=== PATIENT | female | born 1930 | race Caucasian/White ===

== ENCOUNTER 2016-07-26 13:08 | Inpatient (IN) | payer MEDICARE ==
--- NOTE | 2016-07-26 14:01 | ED ---
General Adult HPI - General Chief complaint: Chest Pain Stated complaint: CHEST PAIN Time Seen by Provider: 07/26/16 13:30 Source: patient, EMS, RN notes reviewed, old records reviewed Mode of arrival: EMS Limitations: no limitations - History of Present Illness Initial comments: This is an 86-year-old female ER for evaluation. This patient presents for evaluation of chest pain, severe anterior chest pain. Patient also states she is very short of breath. Patient has no history of similar chest pain. No injuries no trauma no cough no congestion, no recent travel history. Patient denies any significant medical history. Takes no medications. Patient states pain was sudden onset just prior to arrival. No nausea vomiting no diarrhea no abdominal pain. - Related Data Home Medications Medication Instructions Recorded Confirmed Aspirin 81 mg PO DAILY 07/26/16 07/26/16 Calcium Carbonate [Calcium] 600 mg PO DAILY 07/26/16 07/26/16 Cyanocobalamin (Vitamin B-12) 1,000 mcg PO DAILY 07/26/16 07/26/16 [Vitamin B-12] Imipramine HCl [Tofranil] 50 mg PO DIRECTED 07/26/16 07/26/16 Meloxicam [Mobic] 15 mg PO DAILY 07/26/16 07/26/16 Multivitamins, Thera [Multivitamin 1 tab PO DAILY 07/26/16 07/26/16 (formulary)] Polyethylene Glycol 3350 [Miralax] 17 gm PO DAILY PRN 07/26/16 07/26/16 Allergies Allergy/AdvReac Type Severity Reaction Status Date / Time Sulfa (Sulfonamide Allergy Unknown Verified 07/26/16 13:19 Antibiotics) Childhood Review of Systems ROS Statement: Those systems with pertinent positive or pertinent negative responses have been documented in the HPI. ROS Other: All systems not noted in ROS Statement are negative. Past Medical History Past Medical History: Osteoarthritis (OA) History of Any Multi-Drug Resistant Organisms: None Reported Past Surgical History: Breast Surgery, Hysterectomy Past Psychological History: No Psychological Hx Reported Smoking Status: Never smoker Past Alcohol Use History: None Reported Past Drug Use History: None Reported General Exam Limitations: no limitations General appearance: alert, anxious, in distress Head exam: Present: atraumatic, normocephalic, normal inspection Eye exam: Present: normal appearance, PERRL, EOMI. Absent: scleral icterus, conjunctival injection, periorbital swelling ENT exam: Present: normal exam, mucous membranes moist Neck exam: Present: normal inspection. Absent: tenderness, meningismus, lymphadenopathy Respiratory exam: Present: normal lung sounds bilaterally. Absent: respiratory distress, wheezes, rales, rhonchi, stridor Cardiovascular Exam: Present: regular rate, normal rhythm, normal heart sounds. Absent: systolic murmur, diastolic murmur, rubs, gallop, clicks GI/Abdominal exam: Present: soft, normal bowel sounds. Absent: distended, tenderness, guarding, rebound, rigid Extremities exam: Present: normal inspection, full ROM, normal capillary refill. Absent: tenderness, pedal edema, joint swelling, calf tenderness Back exam: Present: normal inspection Neurological exam: Present: alert, oriented X3, CN II-XII intact Psychiatric exam: Present: normal affect, normal mood Skin exam: Present: warm, dry, intact, normal color. Absent: rash Course Vital Signs 07/26/16 07/26/16 07/26/16 13:13 14:18 14:43 Temperature 98.5 F 98.2 F Pulse Rate 73 78 60 Respiratory 22 16 16 Rate Blood Pressure 213/105 221/104 173/86 O2 Sat by Pulse 96 98 95 Oximetry 07/26/16 07/26/16 07/26/16 15:02 15:23 15:57 Temperature Pulse Rate 60 59 L 56 L Respiratory 16 16 16 Rate Blood Pressure 210/92 179/84 190/88 O2 Sat by Pulse 98 97 96 Oximetry - Reevaluation(s) Reevaluation #1: 07/26/16 16:16 Patient's pain is completely resolved with pain control, she still remaining hypertensive EKG Findings - EKG Comments: EKG Findings:: EKG shows normal sinus rhythm rate of 64, WV 190, QRS 78, QTC 404 Medical Decision Making - Medical Decision Making 86 female ER for evaluation of chest pain left chest pain rating left shoulder. Patient is also with elevated blood pressure. Patient be admitted for elevation of blood pressure treatment of high blood pressure treading of cardiac troponins anticoagulation and further evaluation and treatment - Lab Data Result diagrams: 07/26/16 13:15 07/26/16 13:15 Lab Results 07/26/16 07/26/16 07/26/16 Range/Units 13:15 13:15 13:15 WBC 6.0 (3.8-10.6) k/uL RBC 4.07 (3.80-5.40) m/uL Hgb 12.8 (11.4-16.0) gm/dL Hct 38.9 (34.0-46.0) % MCV 95.5 (80.0-100.0) fL MCH 31.4 (25.0-35.0) pg MCHC 32.9 (31.0-37.0) g/dL RDW 13.7 (11.5-15.5) % Plt Count 165 (150-450) k/uL Neutrophils % 76 % Lymphocytes % 15 % Monocytes % 6 % Eosinophils % 0 % Basophils % 0 % Neutrophils # 4.6 (1.3-7.7) k/uL Lymphocytes # 0.9 L (1.0-4.8) k/uL Monocytes # 0.4 (0-1.0) k/uL Eosinophils # 0.0 (0-0.7) k/uL Basophils # 0.0 (0-0.2) k/uL PT (9.0-12.0) sec INR (<1.1) APTT (22.0-30.0) sec Sodium 142 (137-145) mmol/L Potassium 4.2 (3.5-5.1) mmol/L Chloride 103 (98-107) mmol/L Carbon Dioxide 27 (22-30) mmol/L Anion Gap 12 mmol/L BUN 29 H (7-17) mg/dL Creatinine 1.17 H (0.52-1.04) mg/dL Est GFR (MDRD) Af Amer 53 (>60 ml/min/1.73 sqM) Est GFR (MDRD) Non-Af 44 (>60 ml/min/1.73 sqM) Glucose 104 H (74-99) mg/dL Calcium 9.8 (8.4-10.2) mg/dL Magnesium 2.0 (1.6-2.3) mg/dL Total Bilirubin 0.8 (0.2-1.3) mg/dL AST 27 (14-36) U/L ALT 25 (9-52) U/L Alkaline Phosphatase 91 (38-126) U/L Total Creatine Kinase 61 (30-135) U/L CK-MB (CK-2) 1.5 (0.0-2.4) ng/mL CK-MB (CK-2) Rel Index 2.5 Troponin I <0.012 (0.000-0.034) ng/mL Total Protein 6.9 (6.3-8.2) g/dL Albumin 4.1 (3.5-5.0) g/dL Lipase 163 (23-300) U/L 07/26/16 Range/Units 13:15 WBC (3.8-10.6) k/uL RBC (3.80-5.40) m/uL Hgb (11.4-16.0) gm/dL Hct (34.0-46.0) % MCV (80.0-100.0) fL MCH (25.0-35.0) pg MCHC (31.0-37.0) g/dL RDW (11.5-15.5) % Plt Count (150-450) k/uL Neutrophils % % Lymphocytes % % Monocytes % % Eosinophils % % Basophils % % Neutrophils # (1.3-7.7) k/uL Lymphocytes # (1.0-4.8) k/uL Monocytes # (0-1.0) k/uL Eosinophils # (0-0.7) k/uL Basophils # (0-0.2) k/uL PT 11.5 (9.0-12.0) sec INR 1.1 (<1.1) APTT 23.0 (22.0-30.0) sec Sodium (137-145) mmol/L Potassium (3.5-5.1) mmol/L Chloride (98-107) mmol/L Carbon Dioxide (22-30) mmol/L Anion Gap mmol/L BUN (7-17) mg/dL Creatinine (0.52-1.04) mg/dL Est GFR (MDRD) Af Amer (>60 ml/min/1.73 sqM) Est GFR (MDRD) Non-Af (>60 ml/min/1.73 sqM) Glucose (74-99) mg/dL Calcium (8.4-10.2) mg/dL Magnesium (1.6-2.3) mg/dL Total Bilirubin (0.2-1.3) mg/dL AST (14-36) U/L ALT (9-52) U/L Alkaline Phosphatase (38-126) U/L Total Creatine Kinase (30-135) U/L CK-MB (CK-2) (0.0-2.4) ng/mL CK-MB (CK-2) Rel Index Troponin I (0.000-0.034) ng/mL Total Protein (6.3-8.2) g/dL Albumin (3.5-5.0) g/dL Lipase (23-300) U/L - Radiology Data Radiology results: report reviewed (Chest x-ray and CTA of aorta show no aortic dissection, no aneurysm, abdominal aneurysm, normal chest x-ray), image reviewed Critical Care Time Critical Care Time: Yes Total Critical Care Time: 31 Disposition Clinical Impression: Chest pain, Hypertension Disposition: ADMITTED IP TO THIS HOSP Condition: Fair Instructions: Chest Pain (ED) Referrals: Catarino Tao MD [Primary Care Provider] - 1-2 days
[2016-07-26 14:03] LABS: Basophils % (A) 0 %; CH 31.4; Eosinophils % (A) 0 %; HCT 38.9 % (34.0-46.0); HDW 2.49; HGB 12.8 gm/dL (11.4-16.0); Luc # (Auto) 0.16; Luc % (Auto) 3; Lymphocytes # (A) 0.9 k/uL (1.0-4.8); Lymphocytes % (A) 15 %; MCH 31.4 pg (25.0-35.0); MCHC 32.9 g/dL (31.0-37.0); MCV 95.5 fL (80.0-100.0); Mean Platelet Volume 7.9; Monocytes # (A) 0.4 k/uL (0-1.0); Monocytes % (A) 6 %; Neutrophils # (A) 4.6 k/uL (1.3-7.7); Neutrophils % (A) 76 %; RBC 4.07 m/uL (3.80-5.40); RDW 13.7 % (11.5-15.5)
[2016-07-26 14:11] LABS: Calcium 9.8 mg/dL (8.4-10.2); INR 1.1 (<1.1); Potassium 4.2 mmol/L (3.5-5.1); Prothrombin Time 11.5 sec (9.0-12.0); Total Bilirubin 0.8 mg/dL (0.2-1.3); Total Protein 6.9 g/dL (6.3-8.2)
[2016-07-26] MEDS ORDERED: LABETALOL SYRINGE 5 MG/ML IVP STA ×2 (14:24→15:13)
[2016-07-26] MEDS ORDERED: RX INFO: IV CONTRAST WAS GIVEN 1 EACH MISC MISCELLANE PRN (14:24)
--- NOTE | 2016-07-26 14:24 | XR ---
EXAMINATION TYPE: XR chest 2V DATE OF EXAM: 07/26/2016 2:12 PM COMPARISON: 07/19/2012 TECHNIQUE: PA and lateral views submitted. HISTORY: Chest pain FINDINGS: The lungs are clear and there is no pneumothorax, pleural effusion, or focal pneumonia. Degenerativ e change of the spine. Compression deformity in the midthoracic spine is of indeterminate age. There appears to be a aortic aneurysm measuring 4.9 cm. Correlate for pulmonary arterial hypertension. As d iscussed with the ER physician. IMPRESSION: 1. Thoracic aortic aneurysm. Correlate with CT scan as clinically warranted.
[2016-07-26] MEDS ORDERED: MORPHINE SULFATE 4 MG/ML SYRINGE IVP STA (14:31)
[2016-07-26 14:33] LABS: Creatine Kinase 61 U/L (30-135)
[2016-07-26 14:46] LABS: Creatine Kinase MB 1.5 ng/mL (0.0-2.4); Troponin I <0.012 ng/mL (0.000-0.034)
--- NOTE | 2016-07-26 15:25 | CT ---
CTA thoracic and abdominal aorta HISTORY: Hypertension, chest and left shoulder pain Helical acquisition obtained pre- and postadministration of intravenous contrast through the aorta, t hree-dimensional post processing performed on an alternate workstation No comparisons Thoracic aorta shows a normal caliber. There is some thickening of the aortic wall from the transvers e aorta inferiorly, some luminal plaque is also present, no definite dissection. Celiac axis, superio r mesenteric artery and renal arteries are patent. Common iliac arteries aren't dilated measuring charley roximately 21 mm on the left and 21 mm on the right. Internal and external iliac arteries are patent. Internal iliac artery on the left somewhat aneurysmal measuring 13 mm. Common femoral arteries are p atent, proximal superficial and deep femoral arteries are patent. Some wall thickening also present a long the iliac vasculature. Abdominal aorta shows a normal caliber. Inferior mesenteric artery is pat ent. The aorta is tortuous. Pulmonary artery measures approximately 3.1 cm. There are coronary artery calcifications. Prominent l jarad volumes may be indicative of COPD. Nodular density on axial image 37 in the right upper lobe jared ures approximately 5 mm and is indeterminate. Some dependent atelectatic changes are present. No endo bronchial lesion, pleural or pericardial effusion. The heart is enlarged. There are coronary artery c alcifications. There is a hiatal hernia. Degenerative disc changes are present in the spine, there is spinal curvature. Marked facet arthropathy present in the lower lumbar spine. Cortical cysts associa alejandro with the left kidney. Extensive diverticular change in the sigmoid colon. IMPRESSION: Abnormal thickening of the aortic iliac carney, consider aortitis. No evident dissection. 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 Additional findings above.
[2016-07-26] MEDS ORDERED: ASPIRIN 81 MG CHEW PO STA (16:11)
[2016-07-26] MEDS ORDERED: HEPARIN SODIUM,PORCINE 5,000 UNIT/ML 1 ML VIAL IV ONE (16:11)
[2016-07-26] MEDS ORDERED: MORPHINE SULFATE 4 MG/ML SYRINGE IV PRN (16:11)
[2016-07-26] MEDS ORDERED: HEPARIN SODIUM,PORCINE 5,000 UNIT/ML 1 ML VIAL IV PRN (16:11)
[2016-07-26] MEDS: HEPARIN SODIUM,PORCINE/D5W PMX 25,000 UNIT in DEXTROSE/WATER 1 500ML.BAG IV SCH (16:29)
--- NOTE | 2016-07-26 17:05 | US ---
EXAMINATION TYPE: US venous doppler duplex LE RT DATE OF EXAM: 07/26/2016 4:52 PM COMPARISON: NONE CLINICAL HISTORY: Pain. SIDE PERFORMED: right VESSELS IMAGED: External Iliac Vein (EIV) Common Femoral Vein Deep Femoral Vein Greater Saphenous Vein * Femoral Vein Popliteal Vein Small Saphenous Vein * Proximal Calf Veins (* superficial vessels) Within the popliteal fossa there is a hypoechoic focus measuring 1.8 x 3.7 x 1.2 cm with low-level in ternal echoes. Right Leg: Negative for DVT IMPRESSION: No evident deep venous thrombosis at or above the right knee. Semimembranosus gastrocnem ius cyst is likely present within the popliteal fossa. Alternate imaging may be confirmatory.
[2016-07-26] MEDS ORDERED: HYDROmorphone 1 MG/ML 1 ML SYRINGE IVP PRN (18:16)
[2016-07-26] MEDS ORDERED: POLYETHYLENE GLYCOL 3350 17 GM POWD.PACK PO PRN (18:16)
[2016-07-26] MEDS ORDERED: IMIPRAMINE HCL 50 MG PO SCH (18:30)
[2016-07-26] MEDS: hydrALAZINE HCL 20 MG/ML 1 ML VIAL IVP PRN (18:42)
[2016-07-26] MEDS ORDERED: HYDROcodone/APAP 5-325MG 1 EACH TAB PO PRN (19:29)
[2016-07-26] MEDS: METOPROLOL TARTRATE 50 MG TAB PO SCH (20:47)
[2016-07-26] MEDS: MELATONIN 3 MG TABLET PO SCH (20:47)
[2016-07-26 21:06] LABS: Partial Thromboplastin Time 52.9 sec (22.0-30.0)
[2016-07-26 21:09] LABS: Rheumatoid Factor, Qnt <9 IU/mL (<12)
[2016-07-26 21:13] LABS: Troponin I 0.014 ng/mL (0.000-0.034)
[2016-07-26 21:20] LABS: C Reactive Protein 12.7 mg/L (<10.0)
[2016-07-27 00:31] LABS: Appearance,Urine Clear (Clear); Bilirubin,Urine Negative (Negative); Glucose,Urine (UA) Negative (Negative); Ketones,Urine Negative (Negative); Leukocyte Esterase,Urine Negative (Negative); Nitrite,Urine Negative (Negative); PH, Urine 6.5 (5.0-8.0); Protein,Urine Trace (Negative); Specific Gravity,Urine 1.035 (1.001-1.035); UA Billing (MACRO vs. MICRO) CHEM; Urobilinogen,Urine <2.0 mg/dL (<2.0)
[2016-07-27 02:09] LABS: Basophils % (A) 0 %; CH 31.3; CHCM 32.2; Eosinophils % (A) 0 %; HCT 37.6 % (34.0-46.0); HDW 2.38; HGB 11.8 gm/dL (11.4-16.0); Luc # (Auto) 0.12; Luc % (Auto) 2; Lymphocytes # (A) 0.6 k/uL (1.0-4.8); Lymphocytes % (A) 10 %; MCH 30.9 pg (25.0-35.0); MCHC 31.5 g/dL (31.0-37.0); MCV 97.9 fL (80.0-100.0); Monocytes # (A) 0.4 k/uL (0-1.0); Monocytes % (A) 6 %; Neutrophils % (A) 82 %; RBC 3.84 m/uL (3.80-5.40); RDW 13.8 % (11.5-15.5); WBC (Perox) 6.39
[2016-07-27 02:43] LABS: Creatine Kinase MB 0.9 ng/mL (0.0-2.4); Troponin I 0.014 ng/mL (0.000-0.034)
[2016-07-27 02:53] LABS: Potassium 4.2 mmol/L (3.5-5.1)
[2016-07-27] MEDS: hydrALAZINE HCL 20 MG/ML 1 ML VIAL IVP PRN (04:15)
[2016-07-27] MEDS: NITROGLYCERIN SL TABS 0.4 MG TAB SUBLINGUAL PRN ×2 (05:08→05:15)
[2016-07-27] MEDS: PANTOPRAZOLE 40 MG TABLET PO SCH (06:22)
--- NOTE | 2016-07-27 08:58 | HP ---
DATE OF ADMISSION: 07/26/2016 CHIEF COMPLAINT: Chest pain. HISTORY OF PRESENT ILLNESS: This 86-year-old woman with a past medical history of multiple medical problems including history of degenerative joint disease, history of varicose veins, history of breast surgery, history of degenerative joint disease being followed by Dr. Catarino Tao in the outpatient setting was having chest pains today. Initially the pain had started between both shoulders, subsequently the pain extended to the anterior part of chest and posterior part of the chest also. Pain also distended down to below the breast area. There is more of a sharp pain. Patient is also extremely short of breath apparently. Patient came to [facility] and was admitted for further evaluation and treatment. The evaluation showed PTT 22.3, creatinine is 1.17. The EKG on admission showed nonspecific ST-T changes and the venous Doppler showed no evidence of DVT. The thoracic aortic studies also done showed abnormal thickening of the aortoiliac acrney. The possibility of aortitis also considered. No evidence of dissection. dilation of the common iliac arteries also noted. Extensive diverticular changes and chronic obstructive pulmonary disease were also noted on the CT scan. Please refer to the CT scan reports for further evaluation for the full report. There is no history of any fever, rigors. No history of headache, loss of consciousness or seizures. PAST MEDICAL HISTORY: History of DJD, history of varicose veins, history of appendectomy. Medications prior to admission include: 1. Imipramine Tofranil 50 mg p.r.n. 2. MiraLAX 3.35, 17 grams daily. 3. Multivitamin 1 p.o. daily. 4. Mobic 15 mg p.o. daily. 5. Vitamin B12 1000 mcg p.o. daily. 6. Calcium 600 mg p.o. daily. 7. Aspirin 81 mg. ALLERGIES: SULFA. FAMILY HISTORY: No history of heart disease or strokes in the family. SOCIAL HISTORY: No history of smoking, no history of alcohol intake. REVIEW OF SYSTEMS: ENT: No diminished hearing, no diminished vision. CARDIOVASCULAR: As mentioned earlier. RESPIRATORY: As mentioned earlier. GI: No nausea. : No dysuria. NERVOUS SYSTEM: No numbness or weakness. ALLERGY/IMMUNOLOGY: No asthma or hayfever. MUSCULOSKELETAL: As mentioned earlier. HEMATOLOGY: No history of anemia. ENDOCRINE: No history of diabetes or hypothyroidism. CONSTITUTIONAL: As mentioned earlier. DERMATOLOGY: Negative. RHEUMATOLOGY: Negative. PSYCHIATRY: As mentioned earlier. PHYSICAL EXAMINATION: Alert and oriented x3. Pulse 67, blood pressure 280/95, respirations 18, temperature 97.8, pulse ox 90% on 2-L. HEENT: Conjunctivae normal. Oral mucosa moist. NECK: No jugular venous distention. No thyroid enlargement or carotid bruit. No lymph node enlargement. CARDIOVASCULAR: S1 and S2, muffled. RESPIRATORY: Breath sounds diminished at the bases. A few scattered rhonchi and crackles. ABDOMEN: Soft, nontender. No mass palpable. LEGS: No edema, no swelling. NERVOUS SYSTEM: Higher function as mentioned. Moves all four limbs. No focal motor deficits. LYMPHATIC: No lymphadenopathy in the neck, axillae or groin. SKIN: No ulcer, rash or bleeding. Pulses are felt normally. No delay was appreciated. Lab investigation at this time shows CBC within normal limits and creatinine 1.17. Glucose 104. ASSESSMENT: 1. Chest pain, possible unstable angina. 2. Rule out aortitis. 3. History of degenerative joint disease. 4. Shortness of breath for evaluation, possible chronic obstructive pulmonary disease. 5. History of hysterectomy and breast surgery. 6. Urinary incontinence. 7. History of shingles. 8. Increased creatinine with chronic kidney disease stage III. 9. Increased random blood sugar. RECOMMENDATIONS AND DISCUSSION: In this 86-year-old woman who presented with multiple complex medical issues, we will monitor the patient closely. Continue the current medications, continue symptomatic treatment. Cardiology consultation. Rule out myocardial infarction. I would also recommend a CRP and ESR also as well as CARINA and rheumatoid factor as well. The prognosis is guarded because of multiple complex medical issues. Lipid panel will also be noted. Guarded prognosis because of multiple complex medical issues. Further recommendations to follow. Prognosis is guarded because of multiple complex medical issues. I discussed with the patient and family who understands. We will also order a D-dimer. If the d-dimer is positive, recommend a VQ scan. Discussed with the daughter and further recommendations to follow. Copy of dictation forwarded to Dr. Catarino Tao, who is the primary physician. HIRO
[2016-07-27] MEDS ORDERED: MELOXICAM 7.5 MG TAB PO SCH (09:00)
[2016-07-27] MEDS ORDERED: ASPIRIN 325 MG TAB PO SCH (09:00)
[2016-07-27] MEDS: METOPROLOL TARTRATE 50 MG TAB PO SCH ×2 (09:25→20:57)
--- NOTE | 2016-07-27 10:02 | P.CRDCN ---
History of Present Illness Consult date: 07/27/16 Chief complaint: Chest discomfort History of present illness: This is a pleasant 86-year-old female patient with a past medical history significant for hypertension and dyslipidemia was brought to the emergency room by ambulance because of chest discomfort. The patient was in her usual state of health until yesterday when she was at home and started experiencing discomfort between the shoulders. The discomfort was sharp kind of discomfort, severity not to call ambulance to bring the patient to the emergency room. No associated symptoms of shortness of breath, dizziness or lightheadedness, nausea or vomiting, or sweating. 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 Last night the patient developed another episode of chest discomfort, but this time it was at the mid of the chest. The EKG showed sinus rhythm with diffuse nonspecific changes. The cardiac enzymes were checked and came in to be unremarkable. The patient is not aware of any prior history of coronary artery disease and never seen any foot cutter in the past. I will obtain an echocardiogram with Doppler. Agree to keep the patient on the current medications including the aspirin and beta aranza. The patient's symptoms could be secondary to severe underlying coronary artery disease, but I discussed with the family the age and functional capacity and at this point I would consider a conservative medical approach unless the patient developed chest discomfort again. Past Medical History Past Medical History: Osteoarthritis (OA) Additional Past Medical History / Comment(s): varicose veins, rt lower leg dry rash, leg swelling,occ constipation, "leakage of urine, uti, shingles 10 years ago, History of Any Multi-Drug Resistant Organisms: None Reported Past Surgical History: Appendectomy, Breast Surgery, Hysterectomy, Joint Replacement Additional Past Surgical History / Comment(s): colonoscopy, total lt knee arthroplasty 2013,x2 rt breast lumpectomies, d&c d/t miscarraiges Past Anesthesia/Blood Transfusion Reactions: Previous Problems w/ Anesthesia Additional Past Anesthesia/Blood Transfusion Reaction / Comment(s): dif waking after surgury Past Psychological History: No Psychological Hx Reported Additional Psychological History / Comment(s): pt is independant,lives alone in own home that has 5 steps to get into home ,it's a 1 level home w/basement(x13 steps) but laundry is main level. no pets. no outside services, has a shower chair. pt worked as a teachers aid Smoking Status: Never smoker Past Alcohol Use History: None Reported Past Drug Use History: None Reported - Past Family History Mother Family Medical History: No Reported History Additional Family Medical History / Comment(s): at age 95 from" old age" Father Family Medical History: Diabetes Mellitus Brother(s) Additional Family Medical History / Comment(s): brother- from [place] in his 50' s, another brother from cancer and one from dementia Medications and Allergies Home Medications Medication Instructions Recorded Confirmed Type Aspirin 81 mg PO DAILY 07/26/16 07/26/16 History Calcium Carbonate [Calcium] 600 mg PO DAILY 07/26/16 07/26/16 History Cyanocobalamin (Vitamin B-12) 1,000 mcg PO DAILY 07/26/16 07/26/16 History [Vitamin B-12] Imipramine HCl [Tofranil] 50 mg PO DIRECTED 07/26/16 07/26/16 History Meloxicam [Mobic] 15 mg PO DAILY 07/26/16 07/26/16 History Multivitamins, Thera [Multivitamin 1 tab PO DAILY 07/26/16 07/26/16 History (formulary)] Polyethylene Glycol 3350 [Miralax] 17 gm PO DAILY PRN 07/26/16 07/26/16 History Allergies Allergy/AdvReac Type Severity Reaction Status Date / Time Sulfa (Sulfonamide Allergy Unknown Verified 07/26/16 13:19 Antibiotics) Childhood Physical Exam Vitals: Vital Signs Temp Pulse Pulse Resp BP BP Pulse Ox 07/27/16 08:00 96.3 F L 67 16 164/75 96 07/27/16 04:00 98.4 F 65 16 165/73 96 07/27/16 00:00 98.2 F 98 16 132/63 98 07/26/16 20:00 98.8 F 65 16 168/79 95 07/26/16 17:51 97.9 F 57 L 57 L 18 218/95 96 Intake and Output 07/26/16 07/27/16 07/27/16 22:59 06:59 14:59 Intake Total 220 144 501 Output Total 50 Balance 220 94 501 Intake: IV 144 501 Heparin Sodium,Porcine/ 144 258 D5w Pmx 25,000 unit In Dextrose/Water 1 500ml. bag @ 12 UNITS/KG/HR 18. 25 mls/hr IV .Q24H VITO Rx #:[id number] Invasive Line 2 10 Normal Saline 233 Oral 220 Output: Urine 50 Other: Voiding Method Diaper Incontinent # Voids 1 Weight 75.8 kg - Constitutional General appearance: no acute distress - Respiratory Respiratory: bilateral: rhonchi - Cardiovascular Rhythm: regular Heart sounds: normal: S1, S2 Abnormal Heart Sounds: systolic murmur Results 07/27/16 02:03 07/27/16 02:03 Cardiac Enzymes 07/26/16 07/27/16 Range/Units 20:35 02:03 CK-MB (CK-2) 1.0 0.9 (0.0-2.4) ng/mL Troponin I 0.014 0.014 (0.000-0.034) ng/mL Coagulation 07/26/16 07/27/16 Range/Units 20:35 02:03 APTT 52.9 H 52.9 H (22.0-30.0) sec Lipids 07/27/16 Range/Units 02:03 Triglycerides 96 (<150) mg/dL Cholesterol 148 (<200) mg/dL HDL Cholesterol 57 (40-60) mg/dL CBC 07/27/16 Range/Units 02:03 WBC 6.0 (3.8-10.6) k/uL RBC 3.84 (3.80-5.40) m/uL Hgb 11.8 (11.4-16.0) gm/dL Hct 37.6 (34.0-46.0) % Plt Count 114 L (150-450) k/uL Comprehensive Metabolic Panel 07/27/16 Range/Units 02:03 Sodium 139 (137-145) mmol/L Potassium 4.2 (3.5-5.1) mmol/L Chloride 103 (98-107) mmol/L Carbon Dioxide 26 (22-30) mmol/L BUN 29 H (7-17) mg/dL Creatinine 1.10 H (0.52-1.04) mg/dL Glucose 131 H (74-99) mg/dL Calcium 9.0 (8.4-10.2) mg/dL Current Medications Generic Name Dose Route Start Last Admin Trade Name Freq PRN Reason Stop Dose Admin Hydrocodone Bitart/Acetaminophen 1 each 07/26/16 19:29 Isom 5-325 PO Q6HR PRN Pain Aspirin 325 mg 07/27/16 09:00 07/27/16 09:25 Aspirin PO 325 mg DAILY VITO Administration Calcium Carbonate/Glycine 500 mg 07/27/16 12:00 Tums PO DAILY@1200 [facility] Clonidine 0.1 mg 07/26/16 18:16 Catapres PO Q4HR PRN Hypertension Cyanocobalamin 1,000 mcg 07/27/16 12:00 Vitamin B-12 PO DAILY@1200 [facility] Heparin Sodium (Porcine) 0 unit 07/26/16 16:11 Heparin IV Q6HR PRN Low PTT Protocol Hydralazine HCl 10 mg 07/26/16 18:16 07/27/16 04:15 Apresoline IVP 10 mg Q4HR PRN Administration Blood Pressure - High Hydromorphone HCl 0.5 mg 07/26/16 18:16 Dilaudid IVP Q6HR PRN Severe Pain Heparin Sodium/Dextrose 25,000 500 mls @ 18.25 mls/hr 07/26/16 16:15 16:29 unit/ IV Solution IV 12 units/kg/hr .Q24H VITO 18.25 mls/hr Protocol Administration 12 UNITS/KG/HR Melatonin 3 mg 07/26/16 21:00 07/26/16 20:47 Melatonin PO 3 mg HS VITO Administration Meloxicam 15 mg 07/27/16 09:00 07/27/16 09:24 Mobic PO 15 mg DAILY VITO Administration Metoprolol Tartrate 50 mg 07/26/16 21:00 07/27/16 09:25 Lopressor PO 50 mg BID [facility] Administration Miscellaneous Information 1 each 07/26/16 14:24 Rx Info: Iv Contrast Was Given MISCELLANE 07/28/16 14:24 DAILY PRN Per Protocol Morphine Sulfate 4 mg 07/26/16 16:11 Morphine Sulfate (Inj) IV Q4HR PRN Chest Pain Multivitamins 1 each 07/27/16 12:00 Theragran PO DAILY@1200 [facility] Nitroglycerin 0.4 mg 07/26/16 16:11 07/27/16 05:15 Nitrostat SUBLINGUAL 0.4 mg Q5M PRN Administration Chest Pain Non-Formulary Medication 50 mg 03/17/17 18:30 Imipramine Hcl [Tofranil] PO DIRECTED VITO Pantoprazole Sodium 40 mg 07/27/16 07:30 07/27/16 06:22 Protonix PO 40 mg [id number] VITO Administration Polyethylene Glycol 17 gm 07/26/16 18:16 Miralax PO DAILY PRN Constipation Intake and Output 07/26/16 07/27/16 07/27/16 22:59 06:59 14:59 Intake Total 220 144 501 Output Total 50 Balance 220 94 501 Intake: IV 144 501 Heparin Sodium,Porcine/ 144 258 D5w Pmx 25,000 unit In Dextrose/Water 1 500ml. bag @ 12 UNITS/KG/HR 18. 25 mls/hr IV .Q24H VITO Rx #:[id number] Invasive Line 2 10 Normal Saline 233 Oral 220 Output: Urine 50 Other: Voiding Method Diaper Incontinent # Voids 1 Weight 75.8 kg 07/27/16 02:03 07/27/16 02:03 Assessment and Plan Plan: Assessment #1 intermittent episodes of chest discomfort #2 systemic hypertension #3 dyslipidemia #4 PAD Plan #1 agree to keep the patient on the aspirin and beta aranza #2 obtain an echocardiogram was Doppler #3 follow-up with the patient
[2016-07-27] MEDS: MULTIVITAMINS, THERA 1 EACH TAB PO SCH (11:37)
[2016-07-27] MEDS: CYANOCOBALAMIN 500 MCG TAB PO SCH (11:37)
[2016-07-27] MEDS: CALCIUM CARBONATE 500 MG CHEWABLE PO SCH (11:37)
--- NOTE | 2016-07-27 14:06 | ECHOF ---
Referral Reason: MEASUREMENTS -------- HEIGHT: 157.5 cm WEIGHT: 75.8 kg BP: IVSd: 0.9 cm (0.6 - 1.1) LVIDd: 4.3 cm (3.9 - 5.3) LVPWd: 1.1 cm (0.6 - 1.1) IVSs: 1.2 cm LVIDs: 2.1 cm LVPWs: 1.6 cm Ao Diam: 3.5 cm (2.0 - 3.7) AV Cusp: 2.0 cm (1.5 - 2.6) LA Diam: 2.9 cm (2.7 - 3.8) MV EXCURSION: 15.119 mm (> 18.000) MV EF SLOPE: 89 mm/s (70 - 150) EPSS: 1.7 cm MV E Jose De Jesus: 0.75 m/s MV DecT: 426 ms MV A Jose De Jesus: 1.43 m/s MV E/A Ratio: 0.53 AV maxP.45 mmHg AV meanP.41 mmHg RAP: 5.00 mmHg RVSP: 12.81 mmHg FINDINGS -------- Sinus rhythm. This was a technically good study. Left ventricular wall thickness is normal. Overall left ventricular systolic function is normal with, an EF between 55 - 60 %. The right ventricle is normal in size and function. The left atrium is normal in size. The right atrium is normal in size. Aortic valve is trileaflet and is moderately thickened. The mitral valve leaflets are mildly thickened. There is trace mitral regurgitation. Trace tricuspid regurgitation present. The right ventricular systolic pressure, as measured by Doppler, is 12.81mmHg. Pulmonic valve appears structurally normal. The aortic root size is normal. The pericardium is normal. CONCLUSIONS -------- 1. Sinus rhythm. 2. There is trace mitral regurgitation. 3. Trace tricuspid regurgitation present. 4. The right ventricular systolic pressure, as measured by Doppler, is 12.81mmHg. 5. Pulmonic valve appears structurally normal. 6. The aortic root size is normal. 7. The pericardium is normal. 8. This was a technically good study. 9. Left ventricular wall thickness is normal. 10. Overall left ventricular systolic function is normal with, an EF between 55 - 60 %. 11. The right ventricle is normal in size and function. 12. The left atrium is normal in size. 13. The right atrium is normal in size. 14. Aortic valve is trileaflet and is moderately thickened. 15. The mitral valve leaflets are mildly thickened. DIRECTOR ON AIR: Lorena Engle RDCS
[2016-07-27] MEDS ORDERED: ACETAMINOPHEN TAB 500 MG TAB PO PRN (16:28)
[2016-07-27] MEDS: HEPARIN SODIUM,PORCINE/D5W PMX 25,000 UNIT in DEXTROSE/WATER 1 500ML.BAG IV SCH (16:34)
[2016-07-27] MEDS: SODIUM CHLORIDE 0.9% 1,000 ML IV SCH (16:48)
--- NOTE | 2016-07-27 19:46 | NM ---
EXAMINATION TYPE: NM pul vent and perfuse DATE OF EXAM: 07/27/2016 7:40 PM COMPARISON: Chest x-ray 26 July 2016 HISTORY: Chest pain, elevated d-dimer shortness of breath TECHNIQUE: Utilizing inhalation of 71.2 mCi Tc 99m DTPA aerosol and intravenous injection of 5.4 mCi of Tc 99m MAA, ventilation and perfusion images are acquired post injection in multiple projections. FINDINGS: Normal radiotracer distribution is noted in the lungs. There is no evidence of mismatched defects. IMPRESSION: Low probability for pulmonary embolism
--- NOTE | 2016-07-27 20:01 | PN ---
DATE OF SERVICE: 07/27/2016 This 86-year-old woman who was admitted with chest pain was also noted to have possible aortitis per radiology report the CAT scan report and discussed with cardiology Dr. Marmolejo as well as radiologist, Dr. Richmond. The possibility of dissection was also considered with some plaque ulceration in the aorta, also. The patient is being closely monitored. D-dimer is elevated. PAST MEDICAL HISTORY: Reviewed. REVIEW OF SYSTEMS: CARDIOVASCULAR: As mentioned earlier. RESPIRATORY: As mentioned earlier. GI: No nausea, vomiting. : No dysuria. NERVOUS: No numbness or weakness. Current medications are reviewed and include: 1. Tylenol. 2. [place] 5 mg every 6 hours. 3. Catapres p.r.n. 4. Omeprazole p.r.n. 5. Dilaudid. 6. Melatonin. 7. Lopressor 50 mg b.i.d. 8. Morphine p.r.n. 9. Protonix. 10. MiraLax. 11. Imipramine. 12. Heparin. PHYSICAL EXAM: Patient is alert and oriented x3. Pulse 56, blood pressure 159/71, respirations 16, temperature 98.2, pulse ox 97% on 2L. HEENT: Conjunctivae normal. Oral mucosa moist. NECK: No jugular venous distension. No carotid bruits. No lymph node enlargement. CARDIOVASCULAR: S1 and S2 muffled. No S3. No S4. RESPIRATORY: Breath sounds diminished in the bases. A few scattered rhonchi. No crackles. ABDOMEN: Soft, nontender. No mass palpable. LEGS: No edema. No swelling. NERVOUS SYSTEM: Higher functions as mentioned. Moves all 4 limbs. No focal motor or sensory deficits. LYMPHATIC: No lymph nodes palpable in neck, axillae or groins. SKIN: No ulcer, rash or bleeding. LABS: Platelets of 140. Otherwise, D-dimer is 18.5. Creatinine is 1.10. ASSESSMENT: 1. chest pain, rule out coronary artery disease, rule out aortic dissection. 2. Increased D-dimer. 3. Thrombocytopenia. 4. Increased creatinine with mild acute renal failure. 5. History of degenerative joint disease. 6. Rule out aortitis. 7. Shortness of breath, possible chronic obstructive pulmonary disease. 8. History of hysterectomy and breast surgery. 9. Urinary incontinence. 10. History of shingles. 11. History of increased creatinine with chronic kidney disease stage 3 possibly. 12. Increased random blood sugars. 13. FULL CODE. RECOMMENDATIONS AND DISCUSSION: In this 86-year-old woman who presented with multiple complex medical issues, we will monitor the patient closely. Continue the current medications and symptomatic treatment. As per discussion with Radiology and Cardiology, will hold the heparin at this time, continue to monitor, VQ scan. Continue to follow with multiple consultants and symptomatic treatment will be provided. Will control the blood pressure, beta blockers. Dr. Marmolejo recommended to increase the dose of beta blockers and to continue to monitor. Other than that, prognosis guarded. See orders for further details. Further recommendations to follow. MTDD
[2016-07-27] MEDS: amLODIPine 5 MG TAB PO SCH (20:57)
[2016-07-27] MEDS: MELATONIN 3 MG TABLET PO SCH (20:58)
[2016-07-27] MEDS: ATORVASTATIN 10 MG TAB PO SCH (20:58)
[2016-07-28] MEDS: cloNIDine HCL 0.1 MG TAB PO PRN ×2 (03:10→18:28)
[2016-07-28 06:18] LABS: Basophils % (A) 0 %; CH 31.1; CHCM 32.4; Eosinophils % (A) 0 %; HDW 2.37; HGB 10.7 gm/dL (11.4-16.0); Luc # (Auto) 0.12; Luc % (Auto) 2; Lymphocytes # (A) 0.7 k/uL (1.0-4.8); Lymphocytes % (A) 10 %; MCH 31.4 pg (25.0-35.0); MCHC 32.5 g/dL (31.0-37.0); MCV 96.5 fL (80.0-100.0); Mean Platelet Volume 7.4; Monocytes # (A) 0.4 k/uL (0-1.0); Monocytes % (A) 6 %; Neutrophils # (A) 5.7 k/uL (1.3-7.7); Neutrophils % (A) 83 %; RBC 3.42 m/uL (3.80-5.40); RDW 13.9 % (11.5-15.5); WBC 6.9 k/uL (3.8-10.6); WBC (Perox) 7.31
[2016-07-28] MEDS: PANTOPRAZOLE 40 MG TABLET PO SCH (06:29)
[2016-07-28 06:31] LABS: Calcium 8.8 mg/dL (8.4-10.2)
[2016-07-28] MEDS: METOPROLOL TARTRATE 50 MG TAB PO SCH ×3 (08:28→21:01)
[2016-07-28] MEDS: amLODIPine 5 MG TAB PO SCH ×2 (08:28→21:01)
[2016-07-28] MEDS: MULTIVITAMINS, THERA 1 EACH TAB PO SCH (12:01)
[2016-07-28] MEDS: CALCIUM CARBONATE 500 MG CHEWABLE PO SCH (12:01)
[2016-07-28] MEDS: CYANOCOBALAMIN 500 MCG TAB PO SCH (12:01)
--- NOTE | 2016-07-28 12:03 | P.PN ---
Subjective Principal diagnosis: Chest discomfort This is a pleasant 86-year-old female patient with a past medical history significant for hypertension and dyslipidemia was brought to the emergency room by ambulance because of chest discomfort. The patient was in her usual state of health until yesterday when she was at home and started experiencing discomfort between the shoulders. The discomfort was sharp kind of discomfort, severity not to call ambulance to bring the patient to the emergency room. No associated symptoms of shortness of breath, dizziness or lightheadedness, nausea or vomiting, or sweating. 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 Last night the patient developed another episode of chest discomfort, but this time it was at the mid of the chest. The EKG showed sinus rhythm with diffuse nonspecific changes. The cardiac enzymes were checked and came in to be unremarkable. The d-dimer came in to be abnormal but the VQ scan showed low probability for PE. The patient is not aware of any prior history of coronary artery disease and never seen any franchise field consultant in the past. The echocardiogram showed normal LV function without any wall motion abnormalities consistent with ischemia. Objective - Vital Signs Vital signs: Vital Signs Temp 96.8 F L 07/28/16 08:00 Pulse 68 07/28/16 08:00 Resp 18 07/28/16 08:00 BP 144/70 07/28/16 08:00 Pulse Ox 98 07/28/16 08:00 Intake & Output 07/27/16 07/28/16 07/28/16 18:59 06:59 18:59 Intake Total 1045 200 10 Output Total 200 325 Balance 845 -125 10 Weight 75.7 kg Intake: IV 809 200 10 Heparin Sodium,Porcine/ 414 D5w Pmx 25,000 unit In Dextrose/Water 1 500ml. bag @ 12 UNITS/KG/HR 18. 25 mls/hr IV .Q24H [facility] Rx #:[id number] Invasive Line 1 10 Invasive Line 2 20 10 Normal Saline 233 Sodium Chloride 0.9% 1, 132 200 000 ml @ 20 mls/hr IV . Q24H [facility] Rx#:[id number] Oral 236 Output: Urine 200 325 Other: Voiding Method Diaper Diaper Incontinent Incontinent # Voids 1 1 - Constitutional General appearance: Present: no acute distress - Respiratory Respiratory: bilateral: CTA - Cardiovascular Rhythm: regular Heart sounds: normal: S1, S2 - Labs CBC & Chem 7: 07/28/16 05:35 07/28/16 05:35 Labs: Abnormal Lab Results - Last 24 Hours (Table) 07/28/16 07/28/16 Range/Units 05:35 05:35 RBC 3.42 L (3.80-5.40) m/uL Hgb 10.7 L (11.4-16.0) gm/dL Hct 33.0 L (34.0-46.0) % Plt Count 106 L (150-450) k/uL Lymphocytes # 0.7 L (1.0-4.8) k/uL BUN 26 H (7-17) mg/dL Creatinine 1.14 H (0.52-1.04) mg/dL Glucose 112 H (74-99) mg/dL Assessment and Plan Plan: Assessment #1 intermittent episodes of chest discomfort #2 systemic hypertension #3 dyslipidemia #4 PAD Plan #1 continue the current medical treatment #2 the echocardiogram was reviewed and showed normal LV function #3 follow-up with the patient
[2016-07-28] MEDS: SODIUM CHLORIDE 0.9% 1,000 ML IV SCH (15:25)
[2016-07-28] MEDS: MELATONIN 3 MG TABLET PO SCH (21:01)
[2016-07-28] MEDS: ATORVASTATIN 10 MG TAB PO SCH (21:01)
[2016-07-29 06:45] LABS: Basophils # (A) 0.1 k/uL (0-0.2); Basophils % (A) 1 %; CHCM 32.1; Eosinophils % (A) 0 %; HCT 33.5 % (34.0-46.0); HDW 2.41; HGB 10.9 gm/dL (11.4-16.0); Luc # (Auto) 0.17; Luc % (Auto) 2; Lymphocytes # (A) 0.6 k/uL (1.0-4.8); Lymphocytes % (A) 7 %; MCH 31.6 pg (25.0-35.0); MCHC 32.6 g/dL (31.0-37.0); MCV 97.1 fL (80.0-100.0); Mean Platelet Volume 8.3; Monocytes # (A) 0.6 k/uL (0-1.0); Monocytes % (A) 8 %; Neutrophils # (A) 6.8 k/uL (1.3-7.7); Neutrophils % (A) 82 %; RBC 3.45 m/uL (3.80-5.40); RDW 13.8 % (11.5-15.5); WBC 8.3 k/uL (3.8-10.6); WBC (Perox) 8.92
[2016-07-29] MEDS: PANTOPRAZOLE 40 MG TABLET PO SCH (06:55)
[2016-07-29 06:58] LABS: Calcium 8.8 mg/dL (8.4-10.2); Potassium 4.2 mmol/L (3.5-5.1)
[2016-07-29] MEDS: SODIUM CHLORIDE 0.9% 1,000 ML IV SCH (08:04)
[2016-07-29] MEDS: amLODIPine 5 MG TAB PO SCH ×2 (08:06→20:32)
[2016-07-29] MEDS: METOPROLOL TARTRATE 50 MG TAB PO SCH ×3 (08:06→21:39)
[2016-07-29] MEDS: MULTIVITAMINS, THERA 1 EACH TAB PO SCH (11:31)
[2016-07-29] MEDS: CALCIUM CARBONATE 500 MG CHEWABLE PO SCH (11:31)
[2016-07-29] MEDS: CYANOCOBALAMIN 500 MCG TAB PO SCH (11:31)
--- NOTE | 2016-07-29 12:34 | PN ---
DATE OF SERVICE: 07/28/2016 This 86 -year-old woman who was admitted with chest pain, also had possible aortic dissection also. The pulmonary perfusion imaging showed low probability for pulmonary embolism. The patient did not have any chest pain at this time. Cardiology is following the patient closely. Past medical history reviewed. REVIEW OF SYSTEMS: CARDIOVASCULAR SYSTEM: As mentioned earlier. RESPIRATORY: As mentioned earlier. GI: No nausea or vomiting. : No dysuria. Nervous system: No numbness, weakness. Allergy/immunology as mentioned earlier. Current medications are reviewed and include: 1. Tylenol 500 mg q.6h p.r.n. 2. [place] 5 mg q.6 h p.r.n. 3. Norvasc 5 mg p.o. b.i.d. 4. Lipitor 10 mg. 5. TUMS 500 mg daily. 6. Catapres 0.1 q4h p.r.n. 7. Vitamin B12 1000 mg daily. 8. Apresoline 10 mg q.4 p.r.n. 9. Dilaudid 0.5 mg q.6h. 10. Melatonin 3 mg q.h.s. 11. Lopressor 50 mg t.i.d. 12. Morphine 4 mg q.4 p.r.n. 13. Multivitamins. 14. Nitrostat 0.4 sublingual p.r.n. 15. Tofranil 50 mg p.r.n. 16. Protonix 40 mg. 17. MiraLax 17 grams daily. 18. IV fluids. PHYSICAL EXAMINATION: The patient is alert and oriented times three. Pulse is 60, blood pressure 140/67, respiratory rate 16, temperature 98.2, pulse ox 97% on room air. HEENT: Conjunctivae normal. NECK: No jugular venous distention. CARDIOVASCULAR: S1, S2 muffled. Breath sounds diminished at the bases. A few rhonchi, no crackles. ABDOMEN: Soft, nontender. No mass palpable. Legs: No edema, no swelling. Nervous system: Higher functions as mentioned earlier. Moves all four limbs. No focal deficits. LYMPHATICS: No lymph nodes palpable in the neck, axillae or groin. LABS: WBC 6.8, hemoglobin is 10.7, platelets 106, creatinine is 1.14. d-dimer noted. PTTs noted. [place] is negative. ASSESSMENT: 1. Chest pain rule out coronary artery disease and rule out aortic dissection. 2. Increased d-dimer with no evidence of pulmonary embolism with low probability VQ scan. 3. Thrombocytopenia. 4. Increased creatinine with mild acute renal failure. 5. History of degenerative joint disease. 7. Shortness of breath with possible chronic obstructive pulmonary disease. 8. History of hysterectomy and breast surgery. 9. Urinary incontinence. 10. History of shingles. 11. History of increased creatinine with chronic kidney disease stage III, possibly. 12. Increased random blood sugar. 13. FULL CODE. RECOMMENDATIONS AND DISCUSSION: In this 86-year-old woman who presented with multiple complex medical issues, we will monitor the patient closely, continue the current medications, continue symptomatic treatment. Control the blood pressure. Otherwise I would also recommend continue the beta blockers. Closely follow with cardiology. Avoid antiplatelets and heparin. Guarded prognosis because of multiple complex medical issues. Discussed with family at length and at this time the family is not keen for any invasive testing. Other than that, I would also recommend the patient is living by herself, I recommended the patient need for some supervision post discharge. The family understands and agrees. Once again, the prognosis is guarded. Further recommendations to follow. MTDD
--- NOTE | 2016-07-29 13:37 | PN ---
Emili is an 86-year-old lady with history of hypertension who is admitted to hospital with chest pain and has known hypertension. The patient had a CT scan of the chest that revealed an ulcer involving the aorta but there was no dissection. The patient's d-dimer was elevated. A V/Q scan was negative for pulmonary embolism. The patient had an episode of chest discomfort last night. At the time of my evaluation, the patient is comfortable at rest. Heart rate is 67 beats per minute, blood pressure is 160/72, respirations 18. Chest exam reveals diminished air entry bilaterally. Heart exam reveals first and second heart sounds. No gallop. Exam of the extremities did not reveal any edema. Peripheral pulses are palpable. An echocardiogram shows normal LV systolic function with thickened aortic leaflets. Labs show that the hemoglobin is 10.9. Creatinine is 1.2. Potassium is 4.2. ASSESSMENT: 1. Uncontrolled hypertension. 2. Chest pain with ulceration of the aorta without any evidence of dissection. 3. Elevated d-dimer with a low probability V/Q scan. PLAN: Given the patient's advanced age, she is to be ( ) we will treat her with optimal medical therapy and optimal control of her blood pressures. 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 The plan is to treat her with optimal control of her blood pressures. I do not want her to receive p.r.n. medications. I will put her on Catapres 0.1 t.i.d., and if necessary add hydralazine. Patient is not a candidate for any invasive procedures.
--- NOTE | 2016-07-29 14:46 | P.PN ---
Subjective Date of service 07/29/2016 Progress note being dictated for Dr. Paul. Interval history: This is a 78-year-old female admitted with chest pain, uncontrolled hypertension, ulceration of aorta without evidence of dissection reported. Antihypertensives further adjusted as per cardiology for uncontrolled hypertension. Mildly elevated renal function. Currently denies chest pain. Telemetry sinus rhythm. Objective - Vital Signs Vital signs: Vital Signs Temp 97.4 F L 07/29/16 11:36 Pulse 67 07/29/16 11:36 Resp 18 07/29/16 11:36 BP 165/72 07/29/16 11:36 Pulse Ox 92 L 07/29/16 08:00 Intake & Output 07/28/16 07/29/16 07/29/16 18:59 06:59 18:59 Intake Total 20 200 Output Total 100 Balance -80 200 Weight 75.8 kg Intake: IV 20 Invasive Line 2 20 Oral 200 Output: Urine 100 Other: Voiding Method Diaper Incontinent # Voids 1 1 - Exam PHYSICAL EXAM: VITAL SIGNS: [As above] GENERAL: [Sitting up in bed, no acute distress normal] HEENT: [Pupils equal conjunctiva normal.] NECK: [Supple, no JVD] RESPIRATORY EFFORT:[Normal] LUNGS: [Diminished bases, occasional scattered rhonchi] CARDIOVASCULAR[regular S1 and S2, no edema] GI: [Abdomen soft, nontender, positive bowel sounds. No guarding, no rigidity] PSYCH: [Alert and oriented -3, mood and affect normal.] LYMPHATIC: No lymph nodes palpable in neck ,axillary or groins NEURO: No focal deficits, moves all 4 extremities, strength and sensation intact - Labs CBC & Chem 7: 07/29/16 05:55 07/29/16 05:55 Labs: Abnormal Lab Results - Last 24 Hours (Table) 07/29/16 07/29/16 Range/Units 05:55 05:55 RBC 3.45 L (3.80-5.40) m/uL Hgb 10.9 L (11.4-16.0) gm/dL Hct 33.5 L (34.0-46.0) % Plt Count 117 L (150-450) k/uL Lymphocytes # 0.6 L (1.0-4.8) k/uL Sodium 135 L (137-145) mmol/L BUN 29 H (7-17) mg/dL Creatinine 1.20 H (0.52-1.04) mg/dL Assessment and Plan Plan: 1. 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 2. Increased d-dimer, VQ scan low probability for PE 3. [Thrombocytopenia]. 4. [Mild acute on chronic renal failure, stage III]. 5. [Degenerative joint disease]. 6. [Possible COPD]. 7. History of shingles]. Plan: Continue on current medication regime ,monitoring and symptomatic treatment. Family at bedside and updated,plan of care discussed. Evaluated by physical therapy and home with home care recommended at discharge. Antihypertensives adjusted as per cardiology as mentioned above. Close monitoring of renal function with repeat labs ordered for a.m.. Discharge planning in progress. Further recommendations to follow. The impression and plan of care has been dictated as directed. : I performed a H&P examination of this patient and discussed the same with the dictator. I agree with the dictator's note. Any additional findings/opinions/ etc. will be noted.
[2016-07-29] MEDS: cloNIDine HCL 0.1 MG TAB PO SCH ×2 (15:29→21:39)
[2016-07-29] MEDS: ATORVASTATIN 10 MG TAB PO SCH (20:32)
[2016-07-29] MEDS: MELATONIN 3 MG TABLET PO SCH (20:32)
[2016-07-30 06:17] LABS: Basophils % (A) 0 %; CH 31.1; CHCM 32.6; Eosinophils % (A) 0 %; HCT 32.2 % (34.0-46.0); HDW 2.44; HGB 10.3 gm/dL (11.4-16.0); Luc # (Auto) 0.19; Luc % (Auto) 3; Lymphocytes # (A) 0.7 k/uL (1.0-4.8); Lymphocytes % (A) 10 %; MCH 30.7 pg (25.0-35.0); MCHC 32.1 g/dL (31.0-37.0); MCV 95.7 fL (80.0-100.0); Mean Platelet Volume 7.6; Monocytes # (A) 0.6 k/uL (0-1.0); Monocytes % (A) 9 %; Neutrophils # (A) 5.4 k/uL (1.3-7.7); Neutrophils % (A) 78 %; RBC 3.36 m/uL (3.80-5.40); RDW 13.7 % (11.5-15.5); WBC (Perox) 7.63
[2016-07-30] MEDS: PANTOPRAZOLE 40 MG TABLET PO SCH (06:29)
[2016-07-30 06:38] LABS: Calcium 8.7 mg/dL (8.4-10.2); Potassium 3.9 mmol/L (3.5-5.1)
[2016-07-30] MEDS: amLODIPine 5 MG TAB PO SCH (08:10)
[2016-07-30] MEDS: METOPROLOL TARTRATE 50 MG TAB PO SCH (08:11)
[2016-07-30] MEDS: cloNIDine HCL 0.1 MG TAB PO SCH (08:11)
--- NOTE | 2016-07-30 10:05 | PN ---
DATE OF SERVICE: 07/29/2016 This 80-year-old woman who was admitted with chest pain, also had possible aortic dissection. The patient is being closely monitored. I have seen and evaluated the patient with the nurse practitioner. Discussed with cardiology. Prognosis guarded. Further recommendations to follow.
--- NOTE | 2016-07-30 10:08 | P.PN ---
Subjective Principal diagnosis: Chest Pain, hypertension This is a pleasant 86-year-old female with a history of hypertension and dyslipidemia. She was brought to the emergency room by ambulance with complaints of chest discomfort. The discomfort was sharp pain between her shoulder blades with no associated symptoms. 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 EKG showed sinus rhythm with nonspecific ST-T wave abnormalities. Cardiac enzymes have been negative. Echocardiogram showed an ejection fraction of 55-60%. VQ scan showed low probability for PE. Patient was found to be hypertensive and was started on clonidine 0.1 mg 3 times a day by Dr. Ross yesterday. Since that time, blood pressure has been much better controlled ranging 120s to 140s over 50s and 60s. On examination this morning, patient is sitting up on the side of the bed. She has no further complaints of chest discomfort. She denies complaints of shortness of breath, dizziness or palpitations. She does complain of occasional swelling in her ankles. As well as a cough with a grayish colored sputum. Objective - Vital Signs Vital signs: Vital Signs Temp 97.6 F 07/30/16 07:30 Pulse 63 07/30/16 08:49 Resp 21 07/30/16 08:49 BP 137/65 07/30/16 07:30 Pulse Ox 89 L 07/30/16 07:30 Intake & Output 07/29/16 07/30/16 07/30/16 18:59 06:59 18:59 Intake Total 496 120 Balance 496 120 Weight 76.2 kg Intake: IV 178 120 Sodium Chloride 0.9% 1, 178 120 000 ml @ 20 mls/hr IV . Q24H [facility] Rx#:[id number] Oral 318 Other: Voiding Method Diaper Toilet Incontinent # Voids 1 1 - Exam PHYSICAL EXAMINATION: HEENT: Head is atraumatic, normocephalic. Pupils equal, round. Neck is supple. There is no elevated jugular venous pressure. HEART EXAMINATION: Heart sounds regular, S1 and S2 with a systolic murmur. CHEST EXAMINATION: Lungs bennett diminished air entry bilaterally. No chest wall tenderness is noted on palpation or with deep breathing. ABDOMEN: Soft, nontender. Bowel sounds are heard. No organomegaly noted. EXTREMITIES: 1+ peripheral pulses with evidence of trace left lower extremity peripheral edema and no calf tenderness noted. NEUROLOGIC patient is awake, alert and oriented x3. . - Labs CBC & Chem 7: 07/30/16 05:29 07/30/16 05:29 Labs: Abnormal Lab Results - Last 24 Hours (Table) 07/30/16 07/30/16 Range/Units 05:29 05:29 RBC 3.36 L (3.80-5.40) m/uL Hgb 10.3 L (11.4-16.0) gm/dL Hct 32.2 L (34.0-46.0) % Plt Count 122 L (150-450) k/uL Lymphocytes # 0.7 L (1.0-4.8) k/uL Sodium 135 L (137-145) mmol/L BUN 28 H (7-17) mg/dL Creatinine 1.20 H (0.52-1.04) mg/dL Glucose 102 H (74-99) mg/dL Assessment and Plan Plan: Assessment and plan #1 hypertension #2 chest pain with ulceration of the aorta, no evidence of dissection #3 elevated d-dimer with low probability of PE shown on VQ scan From cardiology perspective, we will continue treatment with optimal medical therapy and optimal control of her blood pressure. Continue clonidine 0.1 mg by mouth 3 times a day, amlodipine 5 mg by mouth twice a day and metoprolol 50 mg by mouth 3 times a day. The above dictated assessment and findings were discussed with signing physician. The impression and plan of care have been directed as dictated. Katelyn Adhikari, Nurse Practitioner, acting as scribe for signing physician.
[2016-07-30 11:00] VITALS: BP 148/66; PULSE 60; RESP 20; TEMP 98.2
--- NOTE | 2016-07-30 14:04 | CDI ---
In responding to this query, please exercise your independent professional judgment. The [facility] Coding Staff and Clinical Documentation Specialists appreciate your assistance in clarifying documentation, maintaining compliance with coding guidelines, accurately documenting patients condition and capturing severity of illness. The fact that a question is asked does not imply that any particular answer is desired or expected. Communication forms are a method of clarifying documentation and are not made part of the Legal Health Record. Thank you in advance for your clarification. Last Revision, March 2015 David Patel [address] [place] [address] Documentation Clarification Form Date: 07/30/2016 1:47:00 PM From: Nereyda Tracey RN, CCDS Admit Date: 07/28/2016 4:28:00 PM Patient Name: Emili Driscoll Visit Number: [id number] Dr. Monisha Paul Diagnosis and location in medical record HTN. 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 Hypertensive Emergency Hypertensive urgency Hypertension Other Unable to determine Please document in your progress notes and discharge summary in order to capture severity of illness and risk of mortality. Include clinical findings that support your diagnosis. FYI: Press F11 to launch patient chart. Place X here if this finding has no clinical significance, is not applicable or if you are not able to provide any additional documentation. MTDD
--- NOTE | 2016-07-31 13:05 | DS ---
DATE OF ADMISSION: 07/28/2016 DATE OF DISCHARGE: 07/30/2016 FINAL DIAGNOSES: 1. Chest pain, possibly secondary to acute aortic dissection, limited present on admission. 2. Hypertensive emergency, present on admission. 3. Increased d-dimer. V/Q scan negative for pulmonary embolism. 4. Thrombocytopenia. 5. Mild acute on chronic renal failure stage III. 6. Degenerative joint disease. 7. Possible chronic obstructive pulmonary disease. 8. History of shingles. 9. Aortitis thought to be unlikely. 10. History of hysterectomy and breast surgery. 11. History of urinary incontinence. 12. FULL CODE. DISCHARGE DISPOSITION: The patient will be discharged in stable condition with guarded prognosis. Total time taken is 35 minutes. HISTORY OF PRESENT ILLNESS: This is an 86-year-old with a past medical history of multiple medical problems, was admitted with chest pain and multiple other medical problems. Patient also had elevated blood pressure which was hypertensive emergency present on admission, treated in conjunction with Cardiology. Creatinine was 1.2. Patient also had limited dissection, confirmed with the radiologist; however, in view of the patient's stability, and as well as advanced age of the patient, conservative line of management was continued, and which I discussed at length with the patient and multiple members of the family who understood and agreed. On exam, vitals are stable. CARDIOVASCULAR SYSTEM: S1, S2, muffled. ABDOMEN: Soft. NERVOUS SYSTEM: No focal deficits. DISCHARGE ADVICE: 1. Diet is cardiac. 2. Activity limited until followup. 3. Follow up with Dr. Tao in 2 to 3 days. 4. Follow up with Dr. Ross as advised. Medications are: 1. Tylenol 500 mg q.6 p.r.n. 2. Lipitor 10 mg q.h.s. 3. Calcium 600 mg p.o. daily. 4. Vitamin B12 one thousand mcg p.o. daily. 5. [place] 5 mg q.6 p.r.n. 6. Tofranil 50 mg p.r.n. 7. Melatonin 3 mg p.o. q.h.s. p.r.n. 8. Lopressor 50 mg p.o. t.i.d. 9. Multivitamin 1 p.o. daily. 10. Protonix 40 mg with breakfast daily. 11. MiraLax 17 gm daily. 12. Norvasc 5 mg p.o. b.i.d. 13. Catapres 0.1 mg p.o. t.i.d. Once again, the patient will be discharged in a stable condition with guarded prognosis.
--- NOTE | 2016-08-01 09:12 | CDI ---
In responding to this query, please exercise your independent professional judgment. The [facility] Coding Staff and Clinical Documentation Specialists appreciate your assistance in clarifying documentation, maintaining compliance with coding guidelines, accurately documenting patients condition and capturing severity of illness. The fact that a question is asked does not imply that any particular answer is desired or expected. Communication forms are a method of clarifying documentation and are not made part of the Legal Health Record. Thank you in advance for your clarification. Last Revision, March 2015 David Patel [address] [place] [address] Documentation Clarification Form Date: 08/01/2016 8:46:00 AM From: Molly Bernabe Phone: Admit Date: 07/28/2016 4:28:00 PM Patient Name: Emili Driscoll Visit Number: [id number] Discharge Date: Dr. Monisha Paul Diagnosis and location in medical record Chest pain, possibly secondary to acute aortic dissection is listed in the final diagnosis of the discharge summary. Patient also had limited dissection confirmed with the radiologist is documented in the history of present illness of the discharge summary. Patient history/risk factors: Patient was admitted with chest pain. Radiology findings: Addendum to the CT angio of the thoracic/abdominal aorta: The descending aorta shows irregularity in the plaque, there may be limited aortic ulcer. Vital Signs: T. 98.5, P 73, R 22, BP 213/105 Treatment: In view of the patient's stability, and as well as advanced age of the patient, conservative line of management was continued. Consults: Dr. Marmolejo's assessment: 1. Intermittent episodes of chest discomfort. 2. Systemic hypertension. 3. Dyslipidemia. 4. PAD In your professional opinion, can you please clarify the location of the aortic dissection? - Abdominal - Thoracic - Thoracolumbar - Other - Unable to determine Please document in your progress notes and discharge summary in order to capture severity of illness and risk of mortality. Include clinical findings that support your diagnosis. FYI: Press F11 to launch patient chart. Place X here if this finding has no clinical significance, is not applicable or if you are not able to provide any additional documentation. KPD
--- NOTE | 2016-08-02 16:46 | PN ---
ADDENDUM: Please note: Aortic dissection possibly thoracic aorta.
== END 2016-07-30 13:45 | disposition home or self-care (01) | DRG 300 ==
LOC: EC 13:08 → 6SEL 16:11 → OBSVTOIN 07-28 16:28
PROVIDERS: ADMIT Hospitalist; ATTEND Hospitalist
DX: I71.01 Dissection of thoracic aorta (principal); I16.1 Hypertensive emergency; N17.9 Acute kidney failure, unspecified; D69.6 Thrombocytopenia, unspecified; I72.3 Aneurysm of iliac artery; J44.9 Chronic obstructive pulmonary disease, unspecified; N18.3 Chronic kidney disease, stage 3 (moderate); I73.9 Peripheral vascular disease, unspecified; I12.9 Hypertensive chronic kidney disease with stage 1 through stage 4 chronic kidney disease, or unspecified chronic kidney disease; E78.5 Hyperlipidemia, unspecified; M19.90 Unspecified osteoarthritis, unspecified site; R32 Unspecified urinary incontinence; I83.90 Asymptomatic varicose veins of unspecified lower extremity; R73.9 Hyperglycemia, unspecified; Z79.82 Long term (current) use of aspirin; Z79.899 Other long term (current) drug therapy; Z88.2 Allergy status to sulfonamides; Z96.652 Presence of left artificial knee joint; Z82.49 Family history of ischemic heart disease and other diseases of the circulatory system
CPT/HCPCS: 36415; 71020; 71275; 75635; 78582; 80048; 80053; 80061; 81003; 82550; 82553; 83690; 83735; 84484; 85025; 85379; 85610; 85652; 85730; 86038; 86140; 86431; 93005; 93306; 96365; 96366; 96375; 96376; 99291